=== PATIENT | female | born 1970 | race Caucasian/White ===

== ENCOUNTER 2017-12-09 13:26 | Emergency (ER) | payer OTHER ==
[2017-12-09 13:38] VITALS: TEMP 98.4; BMI 30.7
--- NOTE | 2017-12-09 13:52 | PDOC ---
History of Present Illness - General Chief Complaint: Chest Pain Stated Complaint: CHEST PAIN Time Seen by Provider: 12/09/17 13:51 History Source: Patient - History of Present Illness Initial Comments: 12/09/17 14:08 The patient is a 47 year old female with a PMH of HTN who presents to our ED c/ o chest pain. Patient states the chest pain is substernal, "light pressure" with no radiation and was initially 5/10 when it started on . Patient measured her blood pressures at home and had two readings of SBP 180's/90's. Patient notes she stopped her BP medication in December 2016 because she felt much less stressed which is what she attributes to causing her high blood pressure 4 years previous. Patient was evaluated by her PMD, Dr. Rashad Galarza , on Friday who indicated patient should restart her medication (Amlodipine 10 mg QD and Metoprolol 100 mg QD). Patient states she ran 10 miles on Friday and since her chest pain has worsened since that time, now 7-8/ she decided to come to the ED. ROS is positive for facial tingling which patient notes is consistent with her prior onset of HTN. Also note 2 week h/o viral URI symptoms including runny nose, cough. Patient notes she was evaluated by cardiology 2 or 4 years ago and she had a stress test but can't recall the results. Patient denies shortness of breath, lightheadedness, palpitations, abdominal pain, nausea/vomiting. NKDA Surgical: Tubal Ligation Social: denies nicotine, 4-5 drinks 6 days weekly, denies recreational drugs PMD:Dr. Rashad Galarza Past History - Past Medical History Allergies/Adverse Reactions: Allergies Allergy/AdvReac Type Severity Reaction Status Date / Time No Known Allergies Allergy Unverified 12/09/17 14:54 Home Medications: Ambulatory Orders Amlodipine Besylate 5 mg PO DAILY 12/09/17 Metoprolol Succinate 50 mg PO DAILY 12/09/17 Anemia: Yes COPD: No Diabetes: Yes HTN: Yes - Immunization History Immunization Up to Date: Yes - Suicide/Smoking/Psychosocial Hx Smoking History: Never smoked Hx Alcohol Use: Yes (2-3 drinks, 5 nights a week) Drug/Substance Use Hx: No Review of Systems - Review of Systems Constitutional: No: Chills, Fever HEENTM: No: Blurred Vision, Double Vision Respiratory: Yes: Cough. No: Shortness of Breath, Wheezing, Hemoptysis Cardiac (ROS): Yes: Chest Pain. No: Lightheadedness, Palpitations, Syncope ABD/GI: No: Constipated, Diarrhea, Nausea, Vomiting *Physical Exam - Vital Signs Last Vital Signs Temp Pulse Resp BP Pulse Ox 98.4 F 87 18 170/95 98 12/09/17 13:36 12/09/17 13:36 12/09/17 13:36 12/09/17 13:36 12/09/17 13:36 - Physical Exam General Appearance: Yes: Nourished, Appropriately Dressed HEENT: positive: Normal Voice, Hearing Grossly Normal Neck: positive: Trachea midline, Supple. negative: Lymphadenopathy (R), Lymphadenopathy (L) Respiratory/Chest: positive: Lungs Clear, Normal Breath Sounds. negative: Labored Respiration, Rapid RR, Crackles, Wheezing Cardiovascular: positive: S1, S2, Systolic Murmur. negative: Edema, JVD Vascular Pulses: Dorsalis-Pedis (R): 2+, Doralis-Pedis (L): 2+ Gastrointestinal/Abdominal: positive: Normal Bowel Sounds, Soft. negative: Distended, Guarding, Rebound, Tenderness Extremity: positive: Normal Capillary Refill, Normal Inspection Integumentary: positive: Normal Color, Dry, Warm Neurologic: positive: Fully Oriented, Alert ED Treatment Course - LABORATORY CBC & Chemistry Diagram: 12/09/17 14:12 12/09/17 14:45 Medical Decision Making - Medical Decision Making 12/09/17 14:35 47 year old female, non-adherent to BP meds, w/chest pain. SBP initially 170's at triage, 150's on PE. Frontal diagnosis: r/o ACS, pericarditis, pleuristy, PNA less likely PE, CVA. Will obtain ECG, Troponin, CMP and CXR. Patient declining pain medication @ this time. Reassess. 12/09/17 15:19 Patient resting comfortably. BP stable 12/09/17 16:04 Troponin (-) CBC unremarkable Serum pending 12/09/17 16:22 CXR shows no infiltrate, consolidation 12/09/17 16:24 Patient observed for 2+ hours with stable chest pain. As patient has scheduled Carotid duplex tomorrow and can schedule appointment with PMD, will discharge home with strict return precautions and importance of follow up with cardiology prior to completing in previously scheduled 03/04 marathon. I discussed the physical exam findings, ancillary test results and final diagnoses with the patient. I answered all of the patient's questions. The patient was satisfied with the care received and felt comfortable with the discharge plan and treatment plan. The patient will return to the Emergency Department with any new, persistent or worsening symptoms. *DC/Admit/Observation/Transfer Diagnosis at time of Disposition: Chest pain - Discharge Dispostion Disposition: HOME Condition at time of disposition: Good Decision to Admit order: No - Referrals Referrals: Osacr Galarza MD [Primary Care Provider] - - Patient Instructions Printed Discharge Instructions: DI for Atypical Chest Pain Additional Instructions: Please keep your previously scheduled appointment for a carotid doppler tomorrow. In addition, please make an appointment to see Dr. Galarza for further evaluation including a referral to a apparel rental clerk. Please obtain clearance from a apparel rental clerk and Dr. Galarza prior to participating in your marathon race. You can take Motrin for your pain (up to 3200 mg daily). Return to the Emergency Department for any new/worsening/concerning symptoms. - Post Discharge Activity
[2017-12-09 15:01] LABS: BASO % 0.5 % (0-2.0); EOS % 0.5 % (0-4.5); HEMATOCRIT 41.6 % (32.4-45.2); HEMOGLOBIN 13.4 GM/dL (10.7-15.3); LYMPH % 19.8 % (8-40); MCH 26.4 pg (25.7-33.7); MCHC 32.3 g/dl (32.0-36.0); MEAN CELL VOLUME 81.7 fl (80-96); MONO % 8.5 % (3.8-10.2); NEUT % 70.7 % (42.8-82.8); PLATELET COUNT 311 K/MM3 (134-434); RBC 5.09 M/mm3 (3.60-5.2); WHITE BLOOD COUNT 9.8 K/mm3 (4.0-10.0)
[2017-12-09 15:21] LABS: ALBUMIN 3.5 g/dl (3.4-5.0); ALK PHOS 96 U/L (45-117); ANION GAP 6 MMOL/L (8-16); BILIRUBIN,TOTAL 0.2 mg/dL (0.2-1); BLOOD UREA NITROGEN 17 mg/dL (7-18); CALCIUM 9.6 mg/dL (8.5-10.1); CHLORIDE 107 mmol/L (98-107); CO2 26 mmol/L (21-32); CREATININE 0.7 mg/dL (0.55-1.3); GLUCOSE,RANDOM 72 mg/dL (74-106); POTASSIUM 3.8 mmol/L (3.5-5.1); SGOT/AST 12 U/L (15-37); SGPT/ALT 21 U/L (13-61); SODIUM 138 mmol/L (136-145); TOT PROT 7.6 g/dl (6.4-8.2)
--- NOTE | 2017-12-09 15:41 | PDOC ---
Attending Attestation - Resident Resident Name: LindsayHodan - ED Attending Attestation I have performed the following: I have examined & evaluated the patient, The case was reviewed & discussed with the resident, I agree w/resident's findings & plan - HPI HPI: 12/09/17 15:29 47-year-old female with history of hypertension presents with 5 days of mild chest discomfort in the setting of newly elevated blood pressures. The patient developed gradual onset of bilateral chest discomfort 5 days ago, checked her blood pressure and noted to be elevated, saw her PCP Dr. Galarza on Friday and was restarted on blood pressure medications. Patient's discomfort has persisted since then, her blood pressure did improve so she went for a 10 mile run 2 days ago without difficulty, and notably without any chest pain or difficulty breathing. The patient was lying on the couch earlier today and noted a slight increase in her chest discomfort, so she presents for evaluation. No PE risk factors, admits to 3-4 weeks of URI symptoms of chest congestion and dry cough, no fevers or chills. Has history of GERD but this is different, no leg swelling or positional changes. Denies any dyspnea associated with her symptoms. - Physicial Exam PE: 12/09/17 15:31 Vitals as noted, blood pressure 140/85 on my evaluation Well-appearing seated in stretcher, speaking full sentences without any acute distress No JVD, heart is regular without murmur or rub, lungs are clear Abdomen benign No edema or calf tenderness - Medical Decision Making 12/09/17 15:32 47-year-old female with atypical chest pain for 5 days in the setting of modest elevations in blood pressure. Chest pain is atypical for ACS or PE or acute infectious process, suspect more inflammatory process (question pleuritis versus costochondritis versus pericarditis) given the recent URI sxs. check labs, single troponin sufficient given 5d ongoing sxs and low clinical suspicion EKG without acute ischemia cxr trial of nsaid dispo accordingly with f/u Dr. Galarza and cardiology Heart Score/ECG Review - History History: Slightly suspicious - Electrocardiogram EKG: Normal - Age Age: 45-65 - Risk Factors Based on the list above the patient has:: 1-2 risk factors - Troponin Troponin: </= normal limit - Score Heart Score - Total: 2 #1 ECG reviewed & interpreted by me at: 13:26 General ECG Interpretation: Sinus Rhythm, Normal Rate (82), Normal Intervals ( qtc 448), No acute ischemic changes (no RI depression or ST elevation)
[2017-12-09] MEDS ORDERED: IBUPROFEN 400 MG TABLET (FP) PO ONE ×2 (16:35→16:47)
[2017-12-09 17:07] VITALS: BP 136/78; PULSE 68
--- NOTE | 2017-12-10 09:54 | EKG ---
Test Reason : Blood Pressure : / mmHG Vent. Rate : 082 BPM Atrial Rate : 082 BPM P-R Int : 160 ms QRS Dur : 094 ms QT Int : 384 ms P-R-T Axes : 043 013 031 degrees QTc Int : 448 ms NORMAL SINUS RHYTHM NORMAL ECG WHEN COMPARED WITH ECG OF 30-APR-2007 14:14, VENT. RATE HAS INCREASED BY 28 BPM Confirmed by VARGAS TELLEZ MD ([id number]) on 12/10/2017 9:54:38 AM Referred By: Confirmed By:VARGAS TELLEZ MD
== END 2017-12-09 16:55 | disposition home or self-care (01) ==
LOC: JER 13:26
DX: R07.89 Other chest pain (principal); I10 Essential (primary) hypertension
CPT/HCPCS: 36415; 71045-TC-FY; 80053; 82550; 84484; 84703; 85025; 93005; 93010; 99283-25

== ENCOUNTER 2018-11-22 21:16 | Inpatient (IN) | payer OTHER ==
--- NOTE | 2018-11-22 21:51 | PDOC ---
History of Present Illness - General Chief Complaint: Chest Pain Stated Complaint: CHEST PAIN Time Seen by Provider: 11/22/18 21:50 History Source: Patient Exam Limitations: No Limitations - History of Present Illness Initial Comments: 11/22/18 22:17 Janna Ceron is a 48yF w PMHx uncontrolled HTN presenting w chest tightness. She has had 2-4 episodes of midsternal chest tightness lasting 5-15 minutes exacerbated by exertion over the last 7 days. Associated nausea, face paresthesias, vision change (seeing black halos). Not compliant on BP meds - recently acquired prescriptions, alternates between 2 meds, stops when asymptomatic. Measured BP several times measuring 180/100 on average. Took baby aspirin today. Denies fever, headache, vomiting, cough, SOB, AB pain, urinary/ bowel mvmt changes. Past History - Past Medical History Allergies/Adverse Reactions: Allergies Allergy/AdvReac Type Severity Reaction Status Date / Time No Known Allergies Allergy Verified 11/22/18 21:31 Home Medications: Ambulatory Orders Amlodipine Besylate 5 mg PO DAILY 12/09/17 Metoprolol Succinate 50 mg PO DAILY 12/09/17 Anemia: Yes COPD: No Diabetes: Yes HTN: Yes - Family Disease History Family Disease History: Heart Disease: Mother ( heart attack 40s) - Immunization History Immunization Up to Date: Yes - Suicide/Smoking/Psychosocial Hx Smoking History: Never smoked Have you smoked in the past 12 months: No Hx Alcohol Use: Yes (2-3 drinks, 5 nights a week) Drug/Substance Use Hx: No Substance Use Type: Alcohol Review of Systems - Review of Systems Constitutional: No: Chills, Fever HEENTM: Yes: Recent change in vision. No: Eye Pain, Nose Pain, Throat Pain, Mouth Pain Respiratory: No: Cough, Shortness of Breath Cardiac (ROS): Yes: Chest Tightness. No: Palpitations, Syncope ABD/GI: Yes: Nausea. No: Abdominal Distended, Constipated, Diarrhea, Vomiting : No: Burning, Dysuria, Discharge, Flank Pain, Hematuria, Incontinence Musculoskeletal: No: Back Pain, Joint Pain, Muscle Pain, Muscle Weakness Integumentary: No: Bruising, Flushing, Lesions Neurological: No: Headache, Numbness, Seizure, Tingling, Tremors Psychiatric: No: Anxiety, Depression, Stressors Endocrine: No: Excessive Sweating, Flushing, Intolerance to Cold, Intolerance to Heat Hematologic/Lymphatic: No: Anemia, Blood Clots, Easy Bleeding *Physical Exam - Vital Signs Last Vital Signs Temp Pulse Resp BP Pulse Ox 98.4 F 73 17 150/74 98 11/22/18 21:33 11/22/18 22:32 11/22/18 22:32 11/22/18 22:32 11/22/18 22:32 - Physical Exam General Appearance: Yes: Nourished, Appropriately Dressed. No: Apparent Distress HEENT: positive: EOMI, [place], Normal Voice, Hearing Grossly Normal. negative: Scleral Icterus (R), Scleral Icterus (L), Nasal Congestion, Rhinorrhea Respiratory/Chest: positive: Lungs Clear, Normal Breath Sounds. negative: Chest Tender, Respiratory Distress, Crackles, Rales, Rhonchi, Stridor, Wheezing Cardiovascular: positive: Regular Rhythm, Regular Rate, S1, S2. negative: Edema , Murmur Extremity: positive: Normal Capillary Refill Integumentary: positive: Normal Color Neurologic: positive: technical writing lead/mgr II-XII NML intact, Fully Oriented, Alert, Normal Response, Responsive. negative: Sensory Deficit, Confused, Disoriented Heart Score/ECG Review - History History: Highly suspicious - Electrocardiogram EKG: Normal - Age Age: 45-65 - Risk Factors Risk Factors Heart Score: No Hx Hypercholesterolemia, Yes Hx Hypertension, No Hx Diabetes, No Smoking History, Yes Positive family hx of cardiac disease, Yes Hx Obesity Based on the list above the patient has:: >/=3 risk factors or Hx atherosclerotic disease - Troponin Troponin: </= normal limit - Score Heart Score - Total: 5 ED Treatment Course - LABORATORY CBC & Chemistry Diagram: 11/22/18 22:15 11/22/18 22:30 - ADDITIONAL ORDERS Additional order review: Laboratory Results 11/22/18 22:30 Sodium 139 Potassium 3.9 Chloride 105 Carbon Dioxide 24 Anion Gap 10 BUN 13.4 Creatinine 0.8 Est GFR (CKD-EPI)AfAm 101.75 Est GFR (CKD-EPI)NonAf 87.79 Random Glucose 106 Calcium 8.8 Total Bilirubin 0.2 AST 15 ALT 22 Alkaline Phosphatase 110 Troponin I < 0.02 Total Protein 7.5 Albumin 3.7 11/22/18 22:15 RBC 5.20 MCV 79.0 L MCHC 32.4 RDW 15.9 H MPV 7.6 Neutrophils % 79.4 Lymphocytes % 13.1 D Monocytes % 5.8 Eosinophils % 0.8 Basophils % 0.9 - RADIOLOGY Radiology Studies Ordered: Category Date Time Status CHEST X-RAY PORTABLE* [RAD] Stat Radiology 11/22/18 22:17 Taken Medical Decision Making - Medical Decision Making 11/22/18 22:24 CBC CMP trop EKG CXR EKG NSR HR 77, QTc 454, no ST changes WBC 13, neg trop CXR clear lung noe Janna Ceron is a 48yF w PMHx uncontrolled HTN presenting w chest tightness concerning for unstable angina w chest pain worse w exertion, multiple cardiac risk factors. EKG with NSR no ST changes, negative troponin. Had 2 episodes of chest discomfort at rest in the ED. Plan to admit for chest pain in setting of HEART score 5 (3 risk factors, highly concerning symptoms) Previous PCP Rashad Galarza refused to admit her because she switched insurance to Medicaid. Admit to tele for unstable angina. Sent out microblog Signed out to night team *DC/Admit/Observation/Transfer Diagnosis at time of Disposition: Unstable angina - Discharge Dispostion Condition at time of disposition: Stable Decision to Admit order Date/Time: Decision to Admit Order Category Date Time Status Decision to Admit to Hospital Routine Admission 11/22/18 23:21 Active - Referrals Referrals: Shamir Galarza MD [Staff Physician] - - Patient Instructions - Post Discharge Activity
[2018-11-22 22:33] LABS: BASO % 0.9 % (0-2.0); EOS % 0.8 % (0-4.5); HEMATOCRIT 41.1 % (32.4-45.2); HEMOGLOBIN 13.3 GM/dL (10.7-15.3); LYMPH % 13.1 % (8-40); MCH 25.6 pg (25.7-33.7); MCHC 32.4 g/dl (32.0-36.0); MEAN PLT VOLUME 7.6 fl (7.5-11.1); MONO % 5.8 % (3.8-10.2); NEUT % 79.4 % (42.8-82.8); PLATELET COUNT 322 K/MM3 (134-434); RDW 15.9 % (11.6-15.6); WHITE BLOOD COUNT 13.9 K/mm3 (4.0-10.0)
[2018-11-22 23:25] LABS: ALBUMIN 3.7 g/dl (3.4-5.0); ALK PHOS 110 U/L (45-117); ANION GAP 10 MMOL/L (8-16); BILIRUBIN,TOTAL 0.2 mg/dL (0.2-1); BLOOD UREA NITROGEN 13.4 mg/dL (7-18); CALCIUM 8.8 mg/dL (8.5-10.1); CHLORIDE 105 mmol/L (98-107); CO2 24 mmol/L (21-32); CREATININE 0.8 mg/dL (0.55-1.3); GLUCOSE,RANDOM 106 mg/dL (74-106); POTASSIUM 3.9 mmol/L (3.5-5.1); SGOT/AST 15 U/L (15-37); SGPT/ALT 22 U/L (13-61); SODIUM 139 mmol/L (136-145); TOT PROT 7.5 g/dl (6.4-8.2)
--- NOTE | 2018-11-22 23:58 | PDOC ---
*Physical Exam - Vital Signs Last Vital Signs Temp Pulse Resp BP Pulse Ox 98.4 F 73 17 150/74 98 11/22/18 21:33 11/22/18 22:32 11/22/18 22:32 11/22/18 22:32 11/22/18 22:32 ED Treatment Course - LABORATORY CBC & Chemistry Diagram: 11/22/18 22:15 11/22/18 22:30 - ADDITIONAL ORDERS Additional order review: Laboratory Results 11/22/18 22:30 Sodium 139 Potassium 3.9 Chloride 105 Carbon Dioxide 24 Anion Gap 10 BUN 13.4 Creatinine 0.8 Est GFR (CKD-EPI)AfAm 101.75 Est GFR (CKD-EPI)NonAf 87.79 Random Glucose 106 Calcium 8.8 Total Bilirubin 0.2 AST 15 ALT 22 Alkaline Phosphatase 110 Troponin I < 0.02 Total Protein 7.5 Albumin 3.7 11/22/18 22:15 RBC 5.20 MCV 79.0 L MCHC 32.4 RDW 15.9 H MPV 7.6 Neutrophils % 79.4 Lymphocytes % 13.1 D Monocytes % 5.8 Eosinophils % 0.8 Basophils % 0.9 Medical Decision Making - Medical Decision Making 11/22/18 23:58 Received sign out from DR. Enriquez admitted to hospitalist. *DC/Admit/Observation/Transfer Diagnosis at time of Disposition: Unstable angina - Discharge Dispostion Condition at time of disposition: Stable - Referrals Referrals: Shamir Galarza MD [Staff Physician] - - Patient Instructions - Post Discharge Activity
--- NOTE | 2018-11-23 00:25 | PDOC ---
Documentation entered by Courtney Merritt SCRIBE, acting as scribe for Clarence Chen MD. Clarence Chen MD: This documentation has been prepared by the [address] Nirvannie, SCRIBE, under my direction and personally reviewed by me in its entirety. I confirm that the documentation accurately reflects all work, treatment, procedures, and medical decision making performed by me. Attending Attestation - Resident Resident Name: Kurtis Enriquez - ED Attending Attestation I have performed the following: I have examined & evaluated the patient, The case was reviewed & discussed with the resident, I agree w/resident's findings & plan - HPI HPI: 11/22/18 23:36 CC: Chest pain. HPI: The patient is a 48 year old female, with a significant past medical history of HTN, who presents to the emergency department with, intermittent, exertional, midsternal chest tightness with associated nausea. Patient is noncompliant with blood pressure medications. She denies recent fevers, chills, or headache. Allergies: NKDA - Physicial Exam PE: 11/23/18 00:19 Exam: Vitals: Triage Vital signs reviewed General Appearance: no acute distress, well nourished well developed, Head: Atraumatic, normocephalic Neck: Supple;No Nuchal rigidity Chest Wall: Nontender Cardiac: Regular rate and rhythm, no murmurs, no rubs, no gallops, Lungs: Clear to auscultation bilateral, good air movement bilaterally, Abdomen: Soft, nondistended, normal bowel sounds, nontender to palpation Rectal: Exam deferred Extremities: Full range of motion to all extremities, no cyanosis, clubbing, or edema Skin: Warm and dry, no rashes or lesions, no petechiae Neuro: AOX3; Cranial Nerves 2-12 grossly intact, Strength intact to all extremities, Sensation intact to all extremities Psych: normal mood, normal affect - Medical Decision Making 48 years old with nonischemic EKG negative troponin but worrisome chest pain history with exertional discomfort Heart score is 4 We'll admit to hospital for cardiology evaluation and further management. Heart Score/ECG Review - History History: Highly suspicious (Nonischemic EKG troponin negative but worrisome exertional chest pain story We'll admit the hospital for further evaluation and cardiology consultation) - Electrocardiogram EKG: Normal - Age Age: 45-65 - Risk Factors Risk Factors Heart Score: Yes Hx Hypertension, Yes Positive family hx of cardiac disease Based on the list above the patient has:: 1-2 risk factors - Troponin Troponin: </= normal limit - Score Heart Score - Total: 4 - ECG Impressions Comment:: 11/22/18 23:22 48 years old with past medical history significant for hypertension, positive family history of coronary artery disease presents to the ED with one-week history of intermittent exertional chest pain associated with diaphoresis and arm tingling and nause .ROS: A complete review of 10 out of 10 review of systems is taken and is negative apart from what is previously mentioned below and in the HPI.
[2018-11-23] MEDS ORDERED: NITROGLYCERIN SUBLINGUAL 1/150 0.4 MG TAB SL PRN (00:47)
[2018-11-23] MEDS ORDERED: ATORVASTATIN CA 40 MG TABLET (FP) PO ONE (01:04)
--- NOTE | 2018-11-23 01:06 | PN ---
Teaching Attending Note Name of Resident: Tiago Mock ATTENDING PHYSICIAN STATEMENT I saw and evaluated the patient. I reviewed the resident's note and discussed the case with the resident. I agree with the resident's findings and plan as documented. SUBJECTIVE: 48yo woman w/ uncontrolled HTN, +family hx for cad, presenting w chest tightness. She has had intermitted midsternal chest tightness lasting several minutes exacerbated by exertion over the last few weeks. Now w/ 06/10 chest pain , with radiation to left neck. Say her mother of [place] at age 41. Her maternal grandmother of [place] at age 60. OBJECTIVE: Last Vital Signs Temp Pulse Resp BP Pulse Ox 98.4 F 73 17 150/74 98 11/22/18 21:33 11/22/18 22:32 11/22/18 22:32 11/22/18 22:32 11/22/18 22:32 gen -nad, aaox3 heent -at, nc neck supple cor-s1+s2+rrr chest clear ext -no pedal edema Abnormal Lab Results 11/22/18 22:15 WBC 13.9 H MCV 79.0 L MCH 25.6 L RDW 15.9 H Absolute Neuts (auto) 11.0 H ekg -showed nsr ASSESSMENT AND PLAN: #Unstable angina, neg troponin, ekg normal with no ischmic changes however presentation suspiscious for acs. Strong family history of ACS. -admit to telemetry -asa 324mg po -CLopidogrel 300mg po -high dose statin -heparin drip -echo -NGL SL prn -morphine iv -BP control -supplemental oxygen -salt restriction -cardiology evaluation -urine drug screen
[2018-11-23] MEDS ORDERED: HEPARIN INFUSION - 25,000 UNITS/500 ML INFUS.BAG IV SCH (01:15)
[2018-11-23] MEDS ORDERED: HEPARIN NA (PORCINE) 5,000 UNITS/ML 1ML VIAL IVPUSH PRN ×2 (01:16)
[2018-11-23] MEDS ORDERED: ATORVASTATIN CA 40 MG TABLET (FP) ONE ×2 (01:27→22:24)
--- NOTE | 2018-11-23 02:08 | HP ---
CHIEF COMPLAINT: Episodic angina for the past 7 days PCP: Rashad Galarza HISTORY OF PRESENT ILLNESS: This is a 48 year old female with PMH significant for HTN. She presented to the ER with complaints of episodic chest pain for the past 7 days, which began Friday (11/16) evening. On afternoon, she was walking uphill to pick her son up from school, when she began to feel diaphoretic and short of breath. Normally, she is comfortably able to complete the same route uphill. She stopped walking and her son walked down to her instead. After a brief moment of rest, the pain subsided and she returned home. A few hours later when she was cooking dinner, she felt a substernal, dull chest pain associated with nausea, prompting her to lie down. The pain was sudden in onset, lasted around 15 minutes, rated 5/10 in intensity, and non-radiating. She checked her blood pressure and found it to be 178/106. She took her medication (Norvasc 5mg and Metoprolol 50mg), and then re-checked her blood pressure after a while, and found that it had come down to the 150s/80s. The next day, she had another similar episode but this time she also felt tingling in her fingertips B/L as well as her face (which she has felt in the past during episodes of elevated BP), along with a throbbing sensation on the left side of her neck (not pain). Over the next few days, she reports having approximately 4 episodes of similar chest pain per day, each around 5-15 minutes , brought on by exertion and relieved by rest, aggravated by lying on her left side, 4-5/10 in intensity, and associated with chills, light headedness, dizziness (with her head spinning, not the environment around her), SOB, palpitations, and nausea. The pain is neither reproducible nor pleuritic. She denies any recent illnesses, exposure to sick contacts, or change in her medications. Prior to presenting to the ER, she mistakenly took 3 tablets of Norvasc instead of 1. She has had similar pain in the past, and states that her last stress test was done some time between [id number], and was normal. She presented to the [facility] ER in December 2018 with similar complaints of substernal chest pain that worsened after running 10 miles. Her EKG and trops were normal at the time and she was not admitted. Of note, she was diagnosed with HTN in November 2017, and had been compliant with her medication til Apr 2018. Between Apr and August 2018, she stopped taking her medication completely s that she would not be dependant on anti- hypertensives. This was done without the approval of a physician. Between August and November, she has been taking her medications intermittently, skipping days when her BP is within normal range, and taking them when her BP is high. ER course was notable for: (1) EKG: NSR, no ST T wave changes (2) Trop 0.02 x1 (3) WBC 13.9 Recent Travel: None PAST MEDICAL HISTORY: HTN, not entirely compliant with medications PAST SURGICAL HISTORY: Tubal ligation in 2007 Social History: Smoking: denies Alcohol: Drinks IPAs a few times a week Drugs: denies Allergies No Known Allergies Allergy (Verified 11/22/18 21:31) HOME MEDICATIONS: Home Medications Medication Instructions Recorded Amlodipine Besylate 5 mg PO DAILY 12/09/17 Metoprolol Succinate 50 mg PO DAILY 12/09/17 REVIEW OF SYSTEMS CONSTITUTIONAL: diaphoresis, Absent: fever, chills, diaphoresis, generalized weakness, malaise, loss of appetite, weight change HEENT: Absent: rhinorrhea, nasal congestion, throat pain, throat swelling, difficulty swallowing, mouth swelling, ear pain, eye pain, visual changes CARDIOVASCULAR: chest pain lightheadedness, palpitations Absent: chest pain, syncope, palpitations, irregular heart rate, lightheadedness , peripheral edema RESPIRATORY: shortness of breath Absent: cough, shortness of breath, dyspnea with exertion, orthopnea, wheezing, stridor, hemoptysis GASTROINTESTINAL: nausea, Absent: abdominal pain, abdominal distension, nausea, vomiting, diarrhea, constipation, melena, hematochezia GENITOURINARY: Absent: dysuria, frequency, urgency, hesitancy, hematuria, flank pain, genital pain MUSCULOSKELETAL: Absent: myalgia, arthralgia, joint swelling, back pain, neck pain SKIN: Absent: rash, itching, pallor HEMATOLOGIC/IMMUNOLOGIC: Absent: easy bleeding, easy bruising, lymphadenopathy, frequent infections ENDOCRINE: Absent: unexplained weight gain, unexplained weight loss, heat intolerance, cold intolerance NEUROLOGIC: Absent: headache, focal weakness or paresthesias, dizziness, unsteady gait, seizure, mental status changes, bladder or bowel incontinence PSYCHIATRIC: Absent: anxiety, depression, suicidal or homicidal ideation, hallucinations. PHYSICAL EXAMINATION Vital Signs - 24 hr 11/22/18 11/22/18 21:33 22:32 Temperature 98.4 F Pulse Rate 78 Pulse Rate [ 73 Left] Respiratory 18 17 Rate Blood Pressure 170/90 Blood Pressure 150/74 [Left Arm] O2 Sat by Pulse 100 98 Oximetry (%) GENERAL: AOx3 HEAD: Normal with no signs of trauma. EYES: Pupils equal, round and reactive to light, extraocular movements intact, sclera anicteric, conjunctiva clear. No lid lag. EARS, NOSE, THROAT: Ears normal, nares patent, oropharynx clear without exudates. Moist mucous membranes. NECK: Normal range of motion, supple without lymphadenopathy, JVD, or masses. LUNGS: Breath sounds equal, clear to auscultation bilaterally. No wheezes, and no crackles. No accessory muscle use. HEART: Regular rate and rhythm, normal S1 and S2 without murmur, rub or gallop, no reproducible pain on palpation ABDOMEN: Soft, nontender, not distended, normoactive bowel sounds, no guarding, no rebound, no masses. No hepatomegaly or splenomegaly. MUSCULOSKELETAL: Normal range of motion at all joints. No bony deformities or tenderness. No CVA tenderness. UPPER EXTREMITIES: 2+ pulses, warm, well-perfused. No cyanosis. No clubbing. No peripheral edema. LOWER EXTREMITIES: 2+ pulses, warm, well-perfused. No calf tenderness. No peripheral edema. NEUROLOGICAL: Cranial nerves II-XII intact. Normal speech. Normal gait. PSYCHIATRIC: Cooperative. Good eye contact. Appropriate mood and affect. SKIN: Warm, dry, normal turgor, no rashes or lesions noted, normal capillary refill. Laboratory Results - last 24 hr 11/22/18 11/22/18 22:15 22:30 WBC 13.9 H RBC 5.20 Hgb 13.3 Hct 41.1 MCV 79.0 L MCH 25.6 L MCHC 32.4 RDW 15.9 H Plt Count 322 MPV 7.6 Absolute Neuts (auto) 11.0 H Neutrophils % 79.4 Lymphocytes % 13.1 D Monocytes % 5.8 Eosinophils % 0.8 Basophils % 0.9 Nucleated RBC % 0 Sodium 139 Potassium 3.9 Chloride 105 Carbon Dioxide 24 Anion Gap 10 BUN 13.4 Creatinine 0.8 Est GFR (CKD-EPI)AfAm 101.75 Est GFR (CKD-EPI)NonAf 87.79 Random Glucose 106 Calcium 8.8 Total Bilirubin 0.2 AST 15 ALT 22 Alkaline Phosphatase 110 Troponin I < 0.02 Total Protein 7.5 Albumin 3.7 ASSESSMENT/PLAN: This is a 48 year old female with PMH significant for HTN. She presented to the ER with complaints of episodic chest pain for the past 7 days, which began Friday (11/16) evening. #Unstable Angina - EKG and Trops negative, but presentation suspicious for ACS - EKG: NSR, no ST T wave changes - Trop 0.02 x1, will continue to trend - Tele monitoring - Echo ordered - ASA and Plavix 300mg administered once, started on 75mg daily - Heparin started: 5000 push + 17599 unit drip - 0.4 mg Nitrostat - Lipitor 40mg - Cardio (Dr. Conte) consulted - Morphine #Hx of HTN - Patient mistakenly took 3x Norvasc 10mg, will monitor BP and hold off on resuming meds - 150/74 -> 136/68 - Spoke to patient about importance of compliance, she expressed a willingness to comply with prescribed regimen #FEN - Mg, Phos ordered - Chol/Fet/ Na restricted diet #DVT PE - Already on heparin #Code status - Full code Visit type - Emergency Visit Emergency Visit: Yes ED Registration Date: 11/22/18 Care time: The patient presented to the Emergency Department on the above date and was hospitalized for further evaluation of their emergent condition. - New Patient This patient is new to me today: Yes Date on this admission: 11/23/18 - Critical Care Critical Care patient: No ATTENDING PHYSICIAN STATEMENT I saw and evaluated the patient. I reviewed the resident's note and discussed the case with the resident. I agree with the resident's findings and plan as documented. SUBJECTIVE: OBJECTIVE: ASSESSMENT AND PLAN:
[2018-11-23] MEDS ORDERED: ASPIRIN 81 MG CHEWABLE TABLETS PO ONE ×2 (03:53)
[2018-11-23] MEDS ORDERED: CLOPIDOGREL BISULFATE 300 MG TABLET PO ONE (03:55)
[2018-11-23 04:37] LABS: INR 1.16 (0.83-1.09); PROTHROMBIN TIME (PATIENT) 13.7 SEC (9.7-13.0)
[2018-11-23] MEDS ORDERED: HEPARIN INFUSION - 25,000 UNITS/500 ML INFUS.BAG IVPB ONE (05:11)
[2018-11-23] MEDS ORDERED: CLOPIDOGREL BISULFATE 300 MG TABLET ONE (05:11)
[2018-11-23] MEDS ORDERED: ASPIRIN 81 MG CHEWABLE TABLETS ONE (05:11)
[2018-11-23 07:08] LABS: BASO % 0.4 % (0-2.0); EOS % 1.1 % (0-4.5); HEMATOCRIT 37.3 % (32.4-45.2); HEMOGLOBIN 12.3 GM/dL (10.7-15.3); LYMPH % 19.1 % (8-40); MCH 26.1 pg (25.7-33.7); MCHC 32.9 g/dl (32.0-36.0); MEAN CELL VOLUME 79.1 fl (80-96); MEAN PLT VOLUME 7.5 fl (7.5-11.1); NEUT % 71.4 % (42.8-82.8); PLATELET COUNT 293 K/MM3 (134-434); RBC 4.71 M/mm3 (3.60-5.2); RDW 16.1 % (11.6-15.6); WHITE BLOOD COUNT 9.5 K/mm3 (4.0-10.0)
[2018-11-23] MEDS ORDERED: MORPHINE SULFATE 2 MG/ML VIAL IVPUSH PRN (07:43)
[2018-11-23 07:44] LABS: ALBUMIN 3.4 g/dl (3.4-5.0); BILIRUBIN,TOTAL 0.3 mg/dL (0.2-1); BLOOD UREA NITROGEN 13.2 mg/dL (7-18); CALCIUM 8.6 mg/dL (8.5-10.1); CREATININE 0.7 mg/dL (0.55-1.3); MAGNESIUM 2.1 mg/dL (1.8-2.4); POTASSIUM 3.7 mmol/L (3.5-5.1); TOT PROT 6.6 g/dl (6.4-8.2)
--- NOTE | 2018-11-23 09:01 | CON.CARD ---
Consult Consult Specialty:: Cardiology Referred by:: Hospitalist Medicine Reason for Consultation:: Chest pain - History of Present Illness Chief Complaint: Chest pain History of Present Illness: 48yo woman w/ uncontrolled HTN referable to medication noncompliance, +family hx for cad (mother with IN @ 41), presenting with chest tightness She has had intermittent midsternal chest tightness lasting several minutes exacerbated by exertion over the last few weeks. She had self-d/evonne meds since June, reports associated light-headedness, palpitations, diaphoresis denies dyspnea, orthopnea , true syncope, PND or LE edema. She took her meds after noticing elevated BP, currently asymptomatic, ruled out for IN. - History Source History Provided By: Patient Limitations to Obtaining History: No Limitations - Alcohol/Substance Use Hx Alcohol Use: Yes (2-3 drinks, 5 nights a week) - Smoking History Smoking history: Never smoked Have you smoked in the past 12 months: No Home Medications - Allergies Allergies/Adverse Reactions: Allergies Allergy/AdvReac Type Severity Reaction Status Date / Time No Known Allergies Allergy Verified 11/22/18 21:31 - Home Medications Home Medications: Ambulatory Orders Amlodipine Besylate 10 mg PO DAILY 12/09/17 Metoprolol Succinate 50 mg PO DAILY 12/09/17 Review of Systems - Review of Systems Constitutional: reports: Diaphoresis Cardiovascular: reports: Chest Pain, Palpitations Vital Signs: Vital Signs Temperature 98.4 F 11/23/18 08:27 Pulse Rate 75 11/23/18 08:27 Respiratory Rate 16 11/23/18 08:27 Blood Pressure 120/70 11/23/18 08:27 O2 Sat by Pulse Oximetry (%) 96 11/23/18 08:27 Constitutional: Yes: No Distress, Calm Neck: Yes: Supple Respiratory: Yes: Regular, CTA Bilaterally Gastrointestinal: Yes: Normal Bowel Sounds, Soft Cardiovascular: Yes: Regular Rate and Rhythm JVD: No Carotid Bruit: No Heart Sounds: Yes: S1, S2 Edema: No - Other Data Labs, Other Data: CBC, BMP 11/23/18 06:00 11/23/18 06:00 INR, PTT INR 1.16 (0.83-1.09) H 11/23/18 04:00 Troponin, BNP 11/22/18 11/23/18 22:30 04:00 Troponin I < 0.02 < 0.02 Troponin, BNP 11/22/18 11/23/18 22:30 04:00 Troponin I < 0.02 < 0.02 NSR @ [address]-T changes Imaging - Results Chest X-ray: Report Reviewed (NAD) Problem List - Problems (1) Hypertension Code(s): I10 - ESSENTIAL (PRIMARY) HYPERTENSION Qualifiers: Hypertension type: essential hypertension Qualified Code(s): I10 - Essential (primary) hypertension (2) Hyperlipidemia Code(s): E78.5 - HYPERLIPIDEMIA, UNSPECIFIED Qualifiers: Hyperlipidemia type: pure hypercholesterolemia Qualified Code(s): E78.00 - Pure hypercholesterolemia, unspecified; E78.0 - Pure hypercholesterolemia (3) Noncompliance with medication regimen Code(s): Z91.14 - PATIENT'S OTHER NONCOMPLIANCE WITH MEDICATION REGIMEN (4) Chest pain Code(s): R07.9 - CHEST PAIN, UNSPECIFIED Qualifiers: Chest pain type: precordial pain Qualified Code(s): R07.2 - Precordial pain Assessment/Plan 1. Stable angina r/o CAD 2. Hypertension 3. Hyperlipidemia 4. Medication noncompliance 5. Family h/o premature CAD 6. Abnormal TSH P:1. Ruled out for IN, july d/c Pavix and Heparin gtt, check full TFT 2. Continue ASA, Norvasc, Toprol XL, Lipitor 3. Once ruled out for IN, plan for stress echo to assess ischemia 4. Thank you for consultative opportunity
--- NOTE | 2018-11-23 09:28 | HP ---
Admitting History and Physical - Primary Care Physician PCP: henri henry - Admission Chief Complaint: pt admitted under hospitalist by mistake ? pt co nasea cp 3 days w lght headedness an nausea not relived by ppi stated her bp was elivatecand took 2 novascs pills ? 20 mg pt now comforable given her cp very disciptive and fm hx pos mom mi at 41 y/o despite stess test last nl pt admitted ? card f/u ? stress teast if no cp vs card cath. History Source: Patient Limitations to Obtaining History: No Limitations - Past Medical History Cardiovascular: Yes: HTN, Hyperlipdemia ...: No - Past Surgical History Past Surgical History: Yes: Tubal Ligation - Smoking History Smoking history: Never smoked Have you smoked in the past 12 months: No - Alcohol/Substance Use Hx Alcohol Use: Yes (2-3 drinks, 5 nights a week) History of Substance Use: reports: None - Social History Usual Living Arrangement: Yes: With Spouse History of Recent Travel: No Home Medications - Allergies Allergies/Adverse Reactions: Allergies Allergy/AdvReac Type Severity Reaction Status Date / Time No Known Allergies Allergy Verified 11/22/18 21:31 - Home Medications Home Medications: Ambulatory Orders Amlodipine Besylate 10 mg PO DAILY 12/09/17 Metoprolol Succinate 50 mg PO DAILY 12/09/17 Family Medical History Family Hx Cardiac Disorders: Mother Review of Systems - Review of Systems Constitutional: reports: Other (cp less today) Eyes: reports: No Symptoms HENT: reports: No Symptoms Neck: reports: No Symptoms Cardiovascular: reports: Chest Pain Respiratory: reports: No Symptoms Gastrointestinal: reports: Nausea Genitourinary: reports: No Symptoms Breasts: reports: No Symptoms Reported Musculoskeletal: reports: No Symptoms Integumentary: reports: No Symptoms Neurological: reports: No Symptoms Endocrine: reports: No Symptoms Hematology/Lymphatic: reports: No Symptoms Psychiatric: reports: No Symptoms Physical Examination Vital Signs: Vital Signs Temperature 98.4 F 11/23/18 08:27 Pulse Rate 75 11/23/18 08:27 Respiratory Rate 16 11/23/18 08:27 Blood Pressure 120/70 11/23/18 08:27 O2 Sat by Pulse Oximetry (%) 96 11/23/18 08:27 Constitutional: Yes: No Distress Eyes: Yes: WNL HENT: Yes: WNL Neck: Yes: WNL Cardiovascular: Yes: Regular Rate and Rhythm Respiratory: Yes: WNL Gastrointestinal: Yes: WNL ...Rectal Exam: Yes: Deferred Renal/: Yes: WNL Breast(s): Yes: WNL Musculoskeletal: Yes: WNL Extremities: Yes: WNL Edema: No Peripheral Pulses WNL: Yes Integumentary: Yes: WNL Neurological: Yes: WNL ...Motor Strength: WNL Psychiatric: Yes: Other (slght anxiety) Labs: CBC, BMP 11/23/18 06:00 11/23/18 06:00 Problem List - Problems (1) GERD (gastroesophageal reflux disease) Code(s): K21.9 - GASTRO-ESOPHAGEAL REFLUX DISEASE WITHOUT ESOPHAGITIS Assessment/Plan w/u up thyroid cont hep asa ntro sl plavix agree w caed w/u chk d/s labs in am and ekg lipitor 40 mg po q day srees rest vs card cath ? even if stress neg nuless constast mediated
[2018-11-23 09:58] LABS: COCAINE, UR NEGATIVE ng/ml (CUTOFF=300); METHADONE, UR NEGATIVE ng/ml (CUTOFF=300); OPIATES, URI NEGATIVE ng/ml (CUTOFF=300); PHENCYCLIDINE,URINE NEGATIVE ng/ml (CUTOFF=25); URINE AMPHETAMINES NEGATIVE ng/ml (CUTOFF=500); URINE BARBITURATES NEGATIVE ng/ml (CUTOFF=200); URINE BENZODIAZEPINES NEGATIVE ng/ml (CUTOFF=200)
[2018-11-23] MEDS ORDERED: ASPIRIN 81 MG CHEWABLE TABLETS PO SCH (10:00)
[2018-11-23] MEDS: PANTOPRAZOLE 40 MG TABLET (FP) PO SCH (10:20)
[2018-11-23] MEDS: ASPIRIN 325 MG ENTERIC COATED TABLET (FP) PO SCH (10:20)
--- NOTE | 2018-11-23 10:21 | EKG ---
Test Reason : Blood Pressure : / mmHG Vent. Rate : 081 BPM Atrial Rate : 081 BPM P-R Int : 168 ms QRS Dur : 094 ms QT Int : 386 ms P-R-T Axes : 029 019 026 degrees QTc Int : 448 ms NORMAL SINUS RHYTHM NORMAL ECG WHEN COMPARED WITH ECG OF 22-NOV-2018 21:23, NO SIGNIFICANT CHANGE WAS FOUND Confirmed by RAJAN YEN MD ([id number]) on 11/23/2018 10:20:40 AM Referred By: JEN SUNG Confirmed By:RAJAN YEN MD
--- NOTE | 2018-11-23 10:28 | EKG ---
Test Reason : Blood Pressure : / mmHG Vent. Rate : 077 BPM Atrial Rate : 077 BPM P-R Int : 164 ms QRS Dur : 090 ms QT Int : 402 ms P-R-T Axes : 031 016 030 degrees QTc Int : 454 ms POOR DATA QUALITY, INTERPRETATION MAY BE ADVERSELY AFFECTED NORMAL SINUS RHYTHM NORMAL ECG WHEN COMPARED WITH ECG OF 09-DEC-2017 13:26, NO SIGNIFICANT CHANGE WAS FOUND Confirmed by GLORIA MCKEON, HEAVENLY ([id number]) on 11/23/2018 10:28:20 AM Referred By: Confirmed By:HEAVENLY CASTRO MD
[2018-11-23] MEDS ORDERED: METHADONE HCL 10 MG TABLET PO ONE (13:20)
--- NOTE | 2018-11-23 18:04 | ECHO ---
Name: REECE ROJAS Exam:Exerise Stress Echocardiogram Study Date: 11/23/2018 12:00 PM Age: 48 yrs Reason For Study: CAD Height: 65 in Weight: 190 lb BSA: 1.9 m2 I WMSI = 1.00 % Normal = 100 III WMSI = 1.00 % Normal = 100 Segments Size X - Cannot 2 - 1-2 small Interpret 1 - Normal Hypokinetic 3 - Akinetic 4 - Dyskinetic3-5 moderate 5 - Aneurysmal 6-14 large 15-16 diffuse Procedure Details: Exercise Stress Echocardiogram with 2D imaging. Stress Comments Resting blood pressure was within normal limits. Normal resting electrocardiogram. Normal sinus rhythm. Normal ST segments. A treadmill exercise test according to Jaison protocol was performed. Maximum Heart Rate achieved was 85-90% of maximum age-predicted heart rate. There was no new ST segment depression. Total Stress Time was 9-10 minutes. Exercise-induced hypertension. Left Ventricle The left ventricle is normal in size. There is normal left ventricular wall thickness. The left ventricle is normal in structure and function. Exercise Echocardiogram Negative exercise stress echocardiogram, adequate by heart rate criteria, without symptoms, diagnosti c EKG changes or echocardiographic evidence of ischemia. Interpretation Summary Negative exercise stress echocardiogram, adequate by heart rate criteria, without symptoms, diagnosti c EKG changes or echocardiographic evidence of ischemia 1. Normal augmentation of all myocardial segments. There appears to be no clinical, electrocardiograp hic or echocardiographic evidence of exercise induced myocardia ischemia 2. Patient remained asymptomatic Reading Physician: Dg Greene MD 11/23/2018 06:03 PM
--- NOTE | 2018-11-23 18:22 | EKG ---
Test Reason : Blood Pressure : / mmHG Vent. Rate : 076 BPM Atrial Rate : 076 BPM P-R Int : 170 ms QRS Dur : 094 ms QT Int : 412 ms P-R-T Axes : 027 015 027 degrees QTc Int : 463 ms NORMAL SINUS RHYTHM NORMAL ECG WHEN COMPARED WITH ECG OF 23-NOV-2018 09:14, NO SIGNIFICANT CHANGE WAS FOUND Confirmed by RAJAN YEN MD ([id number]) on 11/23/2018 6:22:31 PM Referred By: Confirmed By:RAJAN YEN MD
[2018-11-23] MEDS ORDERED: ATORVASTATIN CA 40 MG TABLET (FP) PO SCH (22:00)
[2018-11-24 00:18] VITALS: BMI 32.6
[2018-11-24 07:00] LABS: BASO % 0.6 % (0-2.0); EOS % 1.3 % (0-4.5); HEMATOCRIT 35.8 % (32.4-45.2); HEMOGLOBIN 11.9 GM/dL (10.7-15.3); LYMPH % 19.2 % (8-40); MCH 26.1 pg (25.7-33.7); MCHC 33.2 g/dl (32.0-36.0); MEAN CELL VOLUME 78.6 fl (80-96); MEAN PLT VOLUME 7.2 fl (7.5-11.1); MONO % 8.1 % (3.8-10.2); NEUT % 70.8 % (42.8-82.8); PLATELET COUNT 242 K/MM3 (134-434); RBC 4.56 M/mm3 (3.60-5.2); WHITE BLOOD COUNT 8.5 K/mm3 (4.0-10.0)
[2018-11-24 07:23] LABS: CALCIUM 8.4 mg/dL (8.5-10.1); CREATININE 0.7 mg/dL (0.55-1.3); POTASSIUM 3.6 mmol/L (3.5-5.1)
[2018-11-24] MEDS ORDERED: CLOPIDOGREL BISULFATE 75 MG TABLET (FP) PO SCH (10:00)
[2018-11-24] MEDS ORDERED: ASPIRIN 81 MG CHEWABLE TABLETS PO SCH (10:00)
[2018-11-24] MEDS: ASPIRIN 325 MG ENTERIC COATED TABLET (FP) PO SCH (10:23)
[2018-11-24] MEDS: PANTOPRAZOLE 40 MG TABLET (FP) PO SCH (10:23)
--- NOTE | 2018-11-24 10:43 | PN ---
Progress Note, Physician Chief Complaint: Events noted Not in distress History of Present Illness: Patient was seen and examined. Awake and alert. Chart was reviewed Denies chest pain, SOB or palpitations - Current Medication List Current Medications: Active Medications Aspirin (Ecotrin -) 325 mg PO DAILY [facility] Last Admin: 11/24/18 10:23 Dose: 325 mg Atorvastatin Calcium (Lipitor -) 40 mg PO HS [facility] Last Admin: 11/23/18 23:53 Dose: Not Given Metoprolol Succinate (Toprol Xl -) 50 mg PO DAILY [facility] Last Admin: 11/24/18 10:23 Dose: 50 mg Morphine Sulfate (Morphine Sulfate) 2 mg IVPUSH Q6H PRN PRN Reason: PAIN LEVEL 6-10 Nitroglycerin (Nitrostat -) 0.4 mg SL Q5M PRN PRN Reason: FOR CHEST PAIN Pantoprazole Sodium (Protonix -) 40 mg PO DAILY [facility] Last Admin: 11/24/18 10:23 Dose: 40 mg - Objective Vital Signs: Vital Signs Temperature 97.0 F L 11/24/18 06:00 Pulse Rate 69 11/24/18 06:00 Respiratory Rate 16 11/24/18 06:00 Blood Pressure 152/94 11/24/18 06:00 O2 Sat by Pulse Oximetry (%) 96 11/23/18 23:00 Eyes: Yes: PERRL HENT: Yes: Atraumatic Neck: Yes: Supple Cardiovascular: Yes: Regular Rate and Rhythm, S1, S2 Respiratory: Yes: CTA Bilaterally Gastrointestinal: Yes: Normal Bowel Sounds, Soft. No: Tenderness Edema: No Labs: CBC, BMP 11/24/18 06:42 11/24/18 06:42 INR, PTT INR 1.16 (0.83-1.09) H 11/23/18 04:00 Problem List - Problems (1) Hyperlipidemia Code(s): E78.5 - HYPERLIPIDEMIA, UNSPECIFIED Qualifiers: Hyperlipidemia type: pure hypercholesterolemia Qualified Code(s): E78.00 - Pure hypercholesterolemia, unspecified; E78.0 - Pure hypercholesterolemia (2) Hypertension Code(s): I10 - ESSENTIAL (PRIMARY) HYPERTENSION Qualifiers: Hypertension type: essential hypertension Qualified Code(s): I10 - Essential (primary) hypertension (3) Noncompliance with medication regimen Code(s): Z91.14 - PATIENT'S OTHER NONCOMPLIANCE WITH MEDICATION REGIMEN (4) Chest pain Code(s): R07.9 - CHEST PAIN, UNSPECIFIED Qualifiers: Chest pain type: precordial pain Qualified Code(s): R07.2 - Precordial pain Assessment/Plan 1. Stable angina with negative stress echocardiography for ischemia 2. Hypertension 3. Hyperlipidemia 4. Medication noncompliance 5. Family history of premature CAD 6. Abnormal TSH PLAN: 1. Continue ASA, Norvasc, Toprol XL and Lipitor 2. Stress echocardiography was reviewed 3. Discharge planning and gave option to follow up in the office ( [facility]) [phone] Dg Greene MD
--- NOTE | 2018-11-24 10:48 | DS ---
Physical Examination Vital Signs: Vital Signs Temperature 97.0 F L 11/24/18 06:00 Pulse Rate 69 11/24/18 06:00 Respiratory Rate 16 11/24/18 06:00 Blood Pressure 152/94 11/24/18 06:00 O2 Sat by Pulse Oximetry (%) 96 11/23/18 23:00 Constitutional: Yes: Well Nourished Eyes: Yes: WNL HENT: Yes: WNL Neck: Yes: WNL Cardiovascular: Yes: WNL Respiratory: Yes: WNL Gastrointestinal: Yes: Tenderness, Epigastrium ...Rectal Exam: Yes: Deferred Renal/: Yes: WNL Breast(s): Yes: WNL, Gynecomastia Musculoskeletal: Yes: WNL Extremities: Yes: WNL Edema: No Edema: RUE: Trace, LLE: Trace Peripheral Pulses WNL: Yes Integumentary: Yes: WNL Neurological: Yes: WNL ...Motor Strength: WNL Psychiatric: Yes: WNL Labs: CBC, BMP 11/24/18 06:42 11/24/18 06:42 Discharge Summary Reason For Visit: EXERCISE - INDUCED ANGINA Current Active Problems GERD (gastroesophageal reflux disease) (Acute) Hyperlipidemia (Acute) Hypertension (Acute) Noncompliance with medication regimen (Acute) Unstable angina (Acute) Condition: Stable - Instructions Diet, Activity, Other Instructions: take bp meds ay home as is take prolosec bid appt w me 1200 noon tomorrow balwinder mccarthy abd prior to d/c today stress echo nl Disposition: HOME - Home Medications Comprehensive Discharge Medication List: Ambulatory Orders Amlodipine Besylate 10 mg PO DAILY 12/09/17 Metoprolol Succinate 50 mg PO DAILY 12/09/17
[2018-11-24 18:16] VITALS: BP 160/87; PULSE 90; TEMP 99.1
== END 2018-11-24 19:08 | disposition home or self-care (01) | DRG 198 ==
LOC: JER 21:16 → SUPCPDRO 21:16 → JERBED 23:21 → J4S 11-23 22:29
PROVIDERS: ADMIT Family Medicine; ATTEND Family Medicine
DX: I20.0 Unstable angina (principal); R07.89 Other chest pain; I10 Essential (primary) hypertension; E11.9 Type 2 diabetes mellitus without complications; E78.5 Hyperlipidemia, unspecified; K21.9 Gastro-esophageal reflux disease without esophagitis; R94.6 Abnormal results of thyroid function studies; E66.9 Obesity, unspecified; Z68.32 Body mass index [BMI] 32.0-32.9, adult; Z91.14 Patient's other noncompliance with medication regimen; Z82.49 Family history of ischemic heart disease and other diseases of the circulatory system
CPT/HCPCS: 36415; 71045-TC-FY; 76700-TC; 80048; 80053; 80061; 80307; 82550; 83036; 83721; 83735; 84100; 84439; 84443; 84484; 85025; 85610; 85730; 93005; 93010; 93351; 99285-25; J1644

== ENCOUNTER 2020-10-09 11:47 | Inpatient (IN) | payer OTHER ==
[2020-10-09 12:10] VITALS: BMI 33.6
[2020-10-09] MEDS ORDERED: SODIUM CHLORIDE 0.9% 500 ML INFUS.BAG IV ONE (13:10)
[2020-10-09 14:13] LABS: HEMATOCRIT 37.3 % (32.4-45.2); HEMOGLOBIN 12.2 GM/dL (10.7-15.3); MCH 24.1 pg (25.7-33.7); MCHC 32.7 g/dl (32.0-36.0); MEAN CELL VOLUME 73.5 fl (80-96); MEAN PLT VOLUME 7.2 fl (7.5-11.1); PLATELET COUNT 312 10^3/uL (134-434); RBC 5.07 M/mm3 (3.60-5.2); WHITE BLOOD COUNT 9.5 K/mm3 (4.0-10.0)
[2020-10-09 14:21] LABS: INR 1.05 (0.83-1.09); PROTHROMBIN TIME (PATIENT) 12.9 SEC (9.7-13.0)
[2020-10-09 14:23] LABS: ACTIVATED PTT 26.4 SECONDS (25.2-36.5)
[2020-10-09] MEDS: SODIUM CHLORIDE 1,000 ML IV SCH (14:36)
[2020-10-09 14:39] LABS: CALCIUM 8.8 mg/dL (8.5-10.1)
[2020-10-09 14:40] LABS: ALBUMIN 3.5 g/dl (3.4-5.0)
[2020-10-09 14:45] LABS: BILIRUBIN,TOTAL 0.2 mg/dL (0.2-1); CREATININE 0.8 mg/dL (0.55-1.3); PHOSPHOROUS 2.6 mg/dL (2.5-4.9); TOT PROT 7.4 g/dl (6.4-8.2)
[2020-10-09] MEDS ORDERED: ASPIRIN 81 MG CHEWABLE TABLETS ONE (19:16)
[2020-10-09] MEDS: ASPIRIN 81 MG CHEWABLE TABLETS PO SCH (19:18)
[2020-10-09] MEDS ORDERED: ATORVASTATIN CA 80 MG TABLET (FP) ONE (20:35)
[2020-10-09] MEDS: ATORVASTATIN CA 80 MG TABLET (FP) PO SCH (22:08)
[2020-10-09] MEDS ORDERED: ACETAMINOPHEN 325 MG TABLET (FP) ONE (22:19)
[2020-10-09] MEDS: ACETAMINOPHEN 325 MG TABLET (FP) PO PRN (22:23)
[2020-10-10 06:47] LABS: BASO % 0.6 % (0-2.0); EOS % 2.5 % (0-4.5); HEMATOCRIT 34.5 % (32.4-45.2); HEMOGLOBIN 11.4 GM/dL (10.7-15.3); LYMPH % 19.9 % (8-40); MCH 24.1 pg (25.7-33.7); MEAN PLT VOLUME 7.2 fl (7.5-11.1); MONO % 7.1 % (3.8-10.2); NEUT % 69.9 % (42.8-82.8); PLATELET COUNT 293 10^3/uL (134-434); RBC 4.72 M/mm3 (3.60-5.2); RDW 16.8 % (11.6-15.6); WHITE BLOOD COUNT 7.5 K/mm3 (4.0-10.0)
[2020-10-10 07:13] LABS: ALBUMIN 3.1 g/dl (3.4-5.0); BLOOD UREA NITROGEN 9.6 mg/dL (7-18); CALCIUM 8.1 mg/dL (8.5-10.1); CREATININE 0.8 mg/dL (0.55-1.3)
[2020-10-10 07:14] LABS: BILIRUBIN,TOTAL 0.3 mg/dL (0.2-1); TOT PROT 6.4 g/dl (6.4-8.2)
[2020-10-10] MEDS ORDERED: ASPIRIN 81 MG CHEWABLE TABLETS ONE (14:35)
[2020-10-10] MEDS ORDERED: ACETAMINOPHEN 325 MG TABLET (FP) ONE ×2 (14:35→21:24)
[2020-10-10] MEDS ORDERED: LEVOTHYROXINE NA 25 MCG TABLET (FP) ONE (14:35)
[2020-10-10] MEDS: LEVOTHYROXINE NA 25 MCG TABLET (FP) PO SCH (14:36)
[2020-10-10] MEDS: ASPIRIN 81 MG CHEWABLE TABLETS PO SCH (14:36)
[2020-10-10] MEDS: SODIUM CHLORIDE 1,000 ML IV SCH (14:36)
[2020-10-10] MEDS: ACETAMINOPHEN 325 MG TABLET (FP) PO PRN (21:30)
[2020-10-10] MEDS ORDERED: ATORVASTATIN CA 80 MG TABLET (FP) ONE (21:52)
[2020-10-10] MEDS: ATORVASTATIN CA 80 MG TABLET (FP) PO SCH (22:00)
[2020-10-11] MEDS: ASPIRIN 81 MG CHEWABLE TABLETS PO SCH (10:00)
[2020-10-11] MEDS ORDERED: amLODIPine BESYLATE 5 MG TABLET (FP) ONE (14:32)
[2020-10-11] MEDS ORDERED: amLODIPine BESYLATE 10 MG TABLET (FP) PO SCH (14:45)
[2020-10-11] MEDS ORDERED: amLODIPine BESYLATE 5 MG TABLET (FP) PO SCH (14:45)
[2020-10-11] MEDS ORDERED: CARVEDILOL 12.5 MG TABLET (FP) ONE (15:31)
[2020-10-11 16:06] VITALS: TEMP 98.7
[2020-10-11] MEDS ORDERED: LISINOPRIL 10 MG TABLET PO ONE (16:28)
[2020-10-11] MEDS: SODIUM CHLORIDE 1,000 ML IV SCH (16:39)
[2020-10-11] MEDS: LEVOTHYROXINE NA 25 MCG TABLET (FP) PO SCH (16:39)
[2020-10-11] MEDS ORDERED: LISINOPRIL 5 MG TABLET ONE (16:43)
[2020-10-11] MEDS ORDERED: ACETAMINOPHEN 325 MG TABLET (FP) ONE (16:47)
[2020-10-11 18:13] VITALS: BP 159/88; PULSE 70
[2020-10-11] MEDS ORDERED: CARVEDILOL 6.25 MG TABLET (FP) PO SCH (22:00)
[2020-10-12] MEDS ORDERED: amLODIPine BESYLATE 5 MG TABLET (FP) PO SCH (05:15)
== END 2020-10-11 18:13 | disposition home or self-care (01) | DRG 66 ==
LOC: JER 11:47 → JERBED 15:00
DX: I63.89 Other cerebral infarction (principal); R29.702 NIHSS score 2; I10 Essential (primary) hypertension; E78.5 Hyperlipidemia, unspecified; E03.9 Hypothyroidism, unspecified; E66.9 Obesity, unspecified; Z68.33 Body mass index [BMI] 33.0-33.9, adult; R47.1 Dysarthria and anarthria; K22.70 Barrett's esophagus without dysplasia
CPT/HCPCS: 36415; 70450-TC; 70551-TC; 80053; 80061; 82962; 83036; 83735; 84100; 84443; 85025; 85027; 85610; 85730; 93005; 93010; 93306-TC; 93880-TC; 99285-25; C9803; U0003; U0005

== ENCOUNTER 2021-09-26 13:33 | Emergency (ER) | payer OTHER ==
[2021-09-26] MEDS ORDERED: ACETAMINOPHEN 1000 MG/100 ML BAG IVPB ONE (14:04)
[2021-09-26] MEDS ORDERED: FAMOTIDINE 20 MG/50 ML IVPB 20 MG/50 ML MG IVPB ONE (14:04)
[2021-09-26] MEDS ORDERED: SODIUM CHLORIDE 0.9% 500 ML INFUS.BAG IV ONE (14:04)
[2021-09-26] MEDS ORDERED: FAMOTIDINE 10 MG/ML VIAL IVPB ONE (14:29)
[2021-09-26] MEDS ORDERED: ACETAMINOPHEN INJECTION 100 ML IVPB ONE (14:29)
[2021-09-26 14:57] LABS: BASO % 0.7 % (0-2.0); EOS % 1.5 % (0-4.5); HEMATOCRIT 28.8 % (32.4-45.2); LYMPH % 14.9 % (8-40); MCH 19.9 pg (25.7-33.7); MCHC 31.1 g/dl (32.0-36.0); MEAN CELL VOLUME 64.1 fl (80-96); MEAN PLT VOLUME 6.7 fl (7.5-11.1); MONO % 6.5 % (3.8-10.2); NEUT % 76.4 % (42.8-82.8); PLATELET COUNT 318 10^3/uL (134-434); RBC 4.49 M/mm3 (3.60-5.2); RDW 19.1 % (11.6-15.6); WHITE BLOOD COUNT 10.4 K/mm3 (4.0-10.0)
[2021-09-26 14:58] VITALS: TEMP 98.1; BMI 33.3
[2021-09-26 15:21] LABS: CALCIUM 8.7 mg/dL (8.5-10.1)
[2021-09-26 15:22] LABS: ALBUMIN 3.1 g/dl (3.4-5.0); BLOOD UREA NITROGEN 12.7 mg/dL (7-18)
[2021-09-26 15:25] LABS: CREATININE 0.6 mg/dL (0.55-1.3)
[2021-09-26 15:26] LABS: BILIRUBIN,TOTAL 0.2 mg/dL (0.2-1); TOT PROT 6.6 g/dl (6.4-8.2)
[2021-09-26 15:27] LABS: ANISOCYTOSIS 2+; MACROCYTOSIS 0; OVALOCYTE 1+
[2021-09-26 15:30] LABS: N-TERMINAL BNP 43.2 pg/ml (5-125)
[2021-09-26 18:00] VITALS: BP 132/73; PULSE 78; RESP 20
== END 2021-09-26 18:07 | disposition home or self-care (01) ==
LOC: JER 13:33
PROC: 3E033GC Introduction of Other Therapeutic Substance into Peripheral Vein, Percutaneous Approach (ICD-10-PCS; principal; 2021-09-26)
DX: R53.1 Weakness (principal)
CPT/HCPCS: 0241U-QW; 36415; 71045-TC-FY; 80053; 83735; 83880; 84484; 85025; 93005; 93010; 99285-25

== ENCOUNTER 2022-02-06 17:24 | Observation (INO) | payer OTHER ==
[2022-02-06 17:37] VITALS: BMI 34.9
[2022-02-06] MEDS ORDERED: NITROGLYCERIN SUBLINGUAL 1/150 0.4 MG TAB SL ONE (18:28)
[2022-02-06 19:05] LABS: INR 0.99 (0.83-1.09); PROTHROMBIN TIME (PATIENT) 11.4 SEC (9.7-13.0)
[2022-02-06 19:08] LABS: ACTIVATED PTT 25.3 SECONDS (25.2-36.5)
[2022-02-06 19:15] LABS: CHLORIDE 104 mmol/L (98-107); SODIUM 139 mmol/L (136-145)
[2022-02-06 19:17] LABS: CALCIUM 9.6 mg/dL (8.5-10.1)
[2022-02-06 19:18] LABS: ALBUMIN 3.6 g/dl (3.4-5.0); ANION GAP 10 MMOL/L (8-16); BLOOD UREA NITROGEN 14.8 mg/dL (7-18); CO2 25 mmol/L (21-32); GLUCOSE,RANDOM 267 mg/dL (74-106)
[2022-02-06 19:21] LABS: SGOT/AST 23 U/L (15-37); SGPT/ALT 50 U/L (13-61)
[2022-02-06 19:23] LABS: BASO % 0.5 % (0-2.0); EOS % 0.7 % (0-4.5); HEMATOCRIT 35.1 % (32.4-45.2); HEMOGLOBIN 10.7 GM/dL (10.7-15.3); LYMPH % 11.4 % (8-40); MCH 20.4 pg (25.7-33.7); MCHC 30.5 g/dl (32.0-36.0); MEAN CELL VOLUME 66.9 fl (80-96); MEAN PLT VOLUME 7.5 fl (7.5-11.1); MONO % 5.5 % (3.8-10.2); NEUT % 81.9 % (42.8-82.8); PLATELET COUNT 379 10^3/uL (134-434); RBC 5.24 M/mm3 (3.60-5.2); RDW 20.1 % (11.6-15.6); WHITE BLOOD COUNT 12.4 K/mm3 (4.0-10.0)
[2022-02-06 19:23] LABS: BILIRUBIN,TOTAL 0.2 mg/dL (0.2-1); TOT PROT 7.7 g/dl (6.4-8.2)
[2022-02-06 19:24] LABS: ALK PHOS 119 U/L (45-117)
[2022-02-06 20:16] LABS: ANISOCYTOSIS 2+; MACROCYTOSIS 0; OVALOCYTE 1+; PLATELET ESTIMATE NORMAL
[2022-02-06] MEDS ORDERED: HEPARIN NA (PORCINE) 5,000 UNITS/ML 1ML VIAL IVPUSH PRN (22:41)
[2022-02-06] MEDS ORDERED: ASPIRIN 81 MG CHEWABLE TABLETS PO ONE (22:42)
[2022-02-06] MEDS ORDERED: NITROGLYCERIN SUBLINGUAL 1/150 0.4 MG TAB SL PRN (23:23)
[2022-02-06] MEDS ORDERED: SODIUM CHLORIDE 1,000 ML IV SCH (23:30)
[2022-02-06] MEDS ORDERED: ASPIRIN 81 MG CHEWABLE TABLETS ONE (23:35)
[2022-02-07 09:40] LABS: BASO % 0.4 % (0-2.0); EOS % 1.5 % (0-4.5); HEMATOCRIT 32.6 % (32.4-45.2); HEMOGLOBIN 10.2 GM/dL (10.7-15.3); LYMPH % 15.5 % (8-40); MCH 20.8 pg (25.7-33.7); MCHC 31.2 g/dl (32.0-36.0); MEAN CELL VOLUME 66.8 fl (80-96); MEAN PLT VOLUME 7.2 fl (7.5-11.1); MONO % 7.5 % (3.8-10.2); NEUT % 75.1 % (42.8-82.8); PLATELET COUNT 309 10^3/uL (134-434); RBC 4.88 M/mm3 (3.60-5.2); RDW 19.5 % (11.6-15.6)
[2022-02-07] MEDS ORDERED: metoPROLOL SUCCINATE 25 MG TAB.SR.24H (FP) PO SCH (10:00)
[2022-02-07] MEDS ORDERED: metoPROLOL SUCCINATE 25 MG TAB.SR.24H (FP) PO ONE (10:14)
[2022-02-07] MEDS ORDERED: PANTOPRAZOLE SODIUM 40 MG VIAL ONE (10:15)
[2022-02-07] MEDS: PANTOPRAZOLE SODIUM 40 MG VIAL IVPUSH SCH (10:23)
[2022-02-07 10:38] LABS: ALBUMIN 3.1 g/dl (3.4-5.0)
[2022-02-07 10:40] LABS: BLOOD UREA NITROGEN 9.9 mg/dL (7-18); CALCIUM 8.8 mg/dL (8.5-10.1)
[2022-02-07 10:43] LABS: CREATININE 0.6 mg/dL (0.55-1.3)
[2022-02-07 10:44] LABS: BILIRUBIN,TOTAL 0.3 mg/dL (0.2-1); TOT PROT 6.7 g/dl (6.4-8.2)
[2022-02-07] MEDS ORDERED: ATORVASTATIN CA 80 MG TABLET (FP) ONE (21:37)
[2022-02-07] MEDS ORDERED: ASPIRIN 81 MG CHEWABLE TABLETS ONE (21:37)
[2022-02-07] MEDS ORDERED: CLOPIDOGREL BISULFATE 75 MG TABLET (FP) ONE (21:37)
[2022-02-07] MEDS ORDERED: CARVEDILOL 6.25 MG TABLET (FP) ONE (21:37)
[2022-02-07] MEDS: ASPIRIN 81 MG CHEWABLE TABLETS PO SCH (21:45)
[2022-02-07] MEDS: CLOPIDOGREL BISULFATE 75 MG TABLET (FP) PO SCH (21:45)
[2022-02-07] MEDS: CARVEDILOL 6.25 MG TABLET (FP) PO SCH (21:45)
[2022-02-07] MEDS ORDERED: ATORVASTATIN CA 80 MG TABLET (FP) PO SCH (22:00)
[2022-02-08] MEDS ORDERED: LEVOTHYROXINE NA 25 MCG TABLET (FP) PO SCH (07:00)
[2022-02-08 08:07] LABS: BASO % 0.6 % (0-2.0); EOS % 2.1 % (0-4.5); HEMATOCRIT 31.5 % (32.4-45.2); HEMOGLOBIN 9.7 GM/dL (10.7-15.3); LYMPH % 22.5 % (8-40); MCH 20.5 pg (25.7-33.7); MCHC 30.7 g/dl (32.0-36.0); MEAN CELL VOLUME 66.8 fl (80-96); MONO % 7.2 % (3.8-10.2); NEUT % 67.6 % (42.8-82.8); PLATELET COUNT 292 10^3/uL (134-434); RBC 4.72 M/mm3 (3.60-5.2); RDW 19.4 % (11.6-15.6); WHITE BLOOD COUNT 7.9 K/mm3 (4.0-10.0)
[2022-02-08 08:37] LABS: CALCIUM 8.2 mg/dL (8.5-10.1)
[2022-02-08 08:39] LABS: BLOOD UREA NITROGEN 15.9 mg/dL (7-18)
[2022-02-08 08:41] LABS: CREATININE 0.8 mg/dL (0.55-1.3)
[2022-02-08 08:41] LABS: CHOLESTEROL 249 mg/dL (50-200); TRIGLYCERIDES 135 mg/dL (0-150)
[2022-02-08 08:43] LABS: LDL CHOLESTEROL (ONLY SJRH) 196 mg/dL (5-100)
[2022-02-08 08:45] LABS: HDL CHOLESTEROL 41 mg/dL (40-60)
[2022-02-08] MEDS ORDERED: PANTOPRAZOLE 40 MG TABLET PO ONE (10:05)
[2022-02-08] MEDS ORDERED: CLOPIDOGREL BISULFATE 75 MG TABLET (FP) ONE (10:05)
[2022-02-08] MEDS ORDERED: LEVOTHYROXINE NA 25 MCG TABLET (FP) ONE (10:06)
[2022-02-08] MEDS ORDERED: CARVEDILOL 6.25 MG TABLET (FP) ONE (10:06)
[2022-02-08] MEDS ORDERED: ASPIRIN 81 MG CHEWABLE TABLETS ONE (10:06)
[2022-02-08] MEDS: ASPIRIN 81 MG CHEWABLE TABLETS PO SCH (10:11)
[2022-02-08] MEDS: CLOPIDOGREL BISULFATE 75 MG TABLET (FP) PO SCH (10:11)
[2022-02-08] MEDS: CARVEDILOL 6.25 MG TABLET (FP) PO SCH (10:11)
[2022-02-08] MEDS: PANTOPRAZOLE SODIUM 40 MG VIAL IVPUSH SCH (10:11)
[2022-02-08 12:00] VITALS: BP 163/91; PULSE 74; RESP 16; TEMP 97.9
== END 2022-02-08 11:55 | disposition short-term general hospital (02) ==
LOC: JER 17:24 → JERBED 22:52 → INTOOBSV 22:52
PROVIDERS: ADMIT Family Medicine; ATTEND Family Medicine
PROC: 3E033GC Introduction of Other Therapeutic Substance into Peripheral Vein, Percutaneous Approach (ICD-10-PCS; principal; 2022-02-06)
PROC: 3E0337Z Introduction of Electrolytic and Water Balance Substance into Peripheral Vein, Percutaneous Approach (ICD-10-PCS; 2022-02-06)
DX: I21.4 Non-ST elevation (NSTEMI) myocardial infarction (principal); K21.9 Gastro-esophageal reflux disease without esophagitis; I69.354 Hemiplegia and hemiparesis following cerebral infarction affecting left non-dominant side; R73.03 Prediabetes; E66.8 Other obesity; Z68.34 Body mass index [BMI] 34.0-34.9, adult; I10 Essential (primary) hypertension; E78.5 Hyperlipidemia, unspecified; R77.8 Other specified abnormalities of plasma proteins; I20.0 Unstable angina; R53.83 Other fatigue
CPT/HCPCS: 36415; 71045-TC-FY; 71275-TC; 74174-TC; 80048; 80053; 80061; 83036; 84443; 84484; 85025; 85610; 85730; 86850; 86900; 86901; 93005; 93010; 93306-TC; 96365; 99285-25; C9803-CS; G0378; U0003; U0005

== ENCOUNTER 2023-05-23 13:17 | Emergency (ER) | payer OTHER ==
[2023-05-23 13:31] VITALS: TEMP 98; BMI 31.2
[2023-05-23 15:49] LABS: BASO % 0.5 % (0-2.0); EOS % 2.8 % (0-4.5); HEMOGLOBIN 9.4 GM/dL (10.7-15.3); LYMPH % 18.4 % (8-40); MCHC 31.2 g/dl (32.0-36.0); MEAN CELL VOLUME 63.8 fl (80-96); MEAN PLT VOLUME 7.1 fl (7.5-11.1); MONO % 8.1 % (3.8-10.2); NEUT % 70.2 % (42.8-82.8); PLATELET COUNT 323 10^3/uL (134-434); RBC 4.71 M/mm3 (3.60-5.2); RDW 18.5 % (11.6-15.6); WHITE BLOOD COUNT 9.9 K/mm3 (4.0-10.0)
[2023-05-23 15:54] LABS: MCH 19.9 pg (25.7-33.7)
[2023-05-23 16:03] LABS: POTASSIUM 4.2 mmol/L (3.5-5.1)
[2023-05-23 16:06] LABS: CALCIUM 9.1 mg/dL (8.5-10.1)
[2023-05-23 16:07] LABS: ALBUMIN 3.4 g/dl (3.4-5.0); BLOOD UREA NITROGEN 13.3 mg/dL (7-18)
[2023-05-23 16:10] LABS: CREATININE 0.7 mg/dL (0.55-1.3)
[2023-05-23 16:11] LABS: BILIRUBIN,TOTAL 0.3 mg/dL (0.2-1); TOT PROT 7.1 g/dl (6.4-8.2)
[2023-05-23 16:29] LABS: ANISOCYTOSIS 2+; MACROCYTOSIS 0; OVALOCYTE 1+; TEAR DROP CELLS 1+
[2023-05-23 18:37] VITALS: BP 122/64; PULSE 67; RESP 18
[2023-05-23 19:02] LABS: EPI CELLS 16 /uL (0-25.1); HYALINE CASTS 0 /uL (0-3.1); PH,URINE 7.5 (5.0-8.0); URINE APPEARANCE CLEAR; URINE BACTERIA 79 /uL (0-1359); URINE BILIRUBIN NEGATIVE (NEGATIVE); URINE COLOR YELLOW; URINE GLUCOSE (UA) NEGATIVE (NEGATIVE); URINE KETONE NEGATIVE (NEGATIVE); URINE LEUK ESTERASE 1+ (NEGATIVE); URINE NITRITE NEGATIVE (NEGATIVE); URINE PROTEIN NEGATIVE (NEGATIVE); URINE RBC 5 /uL (0-23.9); URINE UROBILINOGEN 0.2 mg/dL (0.2-1.0); URINE WBC 86 /uL (0-25.8)
== END 2023-05-23 19:48 | disposition home or self-care (01) ==
LOC: JER 13:17
DX: R11.0 Nausea (principal); R10.9 Unspecified abdominal pain; M79.602 Pain in left arm; Z20.822 Contact with and (suspected) exposure to COVID-19
CPT/HCPCS: 0241U-QW; 36415; 70450-TC; 71045-TC-FY; 72125-TC; 74177-TC; 80053; 81003; 83690; 84484; 85025; 87086; 93005; 93010; 99285-25; Q9967

== ENCOUNTER 2024-01-15 15:39 | Inpatient (IN) | payer OTHER ==
[2024-01-15 15:52] VITALS: BMI 30.7
[2024-01-15 16:56] LABS: BASO % 0.6 % (0-2.0); EOS % 1.4 % (0-4.5); HEMATOCRIT 28.7 % (32.4-45.2); HEMOGLOBIN 8.8 GM/dL (10.7-15.3); LYMPH % 14.2 % (8-40); MCHC 30.6 g/dl (32.0-36.0); MEAN CELL VOLUME 61.7 fl (80-96); NEUT % 76.8 % (42.8-82.8); PLATELET COUNT 287 10^3/uL (134-434); RBC 4.65 M/mm3 (3.60-5.2); RDW 18.8 % (11.6-15.6); WHITE BLOOD COUNT 10.7 K/mm3 (4.0-10.0)
[2024-01-15 17:01] LABS: MCH 18.9 pg (25.7-33.7)
[2024-01-15 17:04] LABS: INR 1.06 (0.83-1.09); PROTHROMBIN TIME (PATIENT) 12.2 SEC (9.7-13.0)
[2024-01-15 17:07] LABS: ACTIVATED PTT 27.8 SECONDS (25.2-36.5)
[2024-01-15 17:13] LABS: POTASSIUM 3.9 mmol/L (3.5-5.1)
[2024-01-15 17:15] LABS: ALBUMIN 3.3 g/dl (3.4-5.0); BLOOD UREA NITROGEN 16.3 mg/dL (7-18)
[2024-01-15 17:19] LABS: CREATININE 0.8 mg/dL (0.55-1.3)
[2024-01-15 17:20] LABS: BILIRUBIN,TOTAL 0.3 mg/dL (0.2-1); TOT PROT 6.8 g/dl (6.4-8.2)
[2024-01-15] MEDS ORDERED: ASPIRIN 81 MG CHEWABLE TABLETS ONE (17:33)
[2024-01-15] MEDS: ASPIRIN 81 MG CHEWABLE TABLETS PO ONE (17:48)
[2024-01-15 18:10] LABS: HIV INTERPRETATION NEGATIVE (NEGATIVE)
[2024-01-15 18:43] LABS: ANISOCYTOSIS 2+; MACROCYTOSIS 0; ROULEAU 1+
[2024-01-15] MEDS: CARVEDILOL 12.5 MG TABLET (FP) PO SCH (21:25)
[2024-01-15] MEDS: ATORVASTATIN CA 80 MG TABLET (FP) PO SCH (21:27)
[2024-01-15] MEDS: PRAMIPEXOLE DIHYDROCHLORIDE 0.125 MG TABLET PO SCH (23:49)
[2024-01-16] MEDS: LEVOTHYROXINE NA 50 MCG TABLET (FP) PO SCH (06:59)
[2024-01-16 07:00] LABS: BASO % 0.6 % (0-2.0); EOS % 1.7 % (0-4.5); HEMATOCRIT 28.1 % (32.4-45.2); HEMOGLOBIN 8.5 GM/dL (10.7-15.3); LYMPH % 20.5 % (8-40); MCHC 30.1 g/dl (32.0-36.0); MEAN CELL VOLUME 62.1 fl (80-96); MONO % 8.3 % (3.8-10.2); NEUT % 68.9 % (42.8-82.8); PLATELET COUNT 263 10^3/uL (134-434); RBC 4.53 M/mm3 (3.60-5.2); RDW 18.8 % (11.6-15.6); WHITE BLOOD COUNT 8.5 K/mm3 (4.0-10.0)
[2024-01-16 07:22] LABS: CALCIUM 8.7 mg/dL (8.5-10.1)
[2024-01-16 07:23] LABS: BLOOD UREA NITROGEN 14.8 mg/dL (7-18); MAGNESIUM 1.6 mg/dL (1.8-2.4)
[2024-01-16 07:25] LABS: MCH 18.7 pg (25.7-33.7)
[2024-01-16 07:26] LABS: CREATININE 0.6 mg/dL (0.55-1.3)
[2024-01-16] MEDS: LOSARTAN POTASSIUM 25 MG TABLET PO SCH (11:19)
[2024-01-16] MEDS: ASPIRIN 81 MG CHEWABLE TABLETS PO SCH (11:19)
[2024-01-16] MEDS: amLODIPine BESYLATE 5 MG TABLET (FP) PO SCH (11:20)
[2024-01-16] MEDS: FERROUS SO4 325 MG TABLET (FP) PO SCH (11:20)
[2024-01-16] MEDS: ENOXAPARIN NA (PORCINE) 40 MG/0.4 ML DISP.SYRIN SQ SCH (11:20)
[2024-01-17 09:13] LABS: BASO % 0.7 % (0-2.0); HEMOGLOBIN 8.8 GM/dL (10.7-15.3); LYMPH % 20.1 % (8-40); MCHC 30.2 g/dl (32.0-36.0); MEAN CELL VOLUME 63.2 fl (80-96); MEAN PLT VOLUME 8.2 fl (7.5-11.1); MONO % 7.5 % (3.8-10.2); NEUT % 69.7 % (42.8-82.8); PLATELET COUNT 272 10^3/uL (134-434); RBC 4.59 M/mm3 (3.60-5.2); RDW 19.2 % (11.6-15.6); WHITE BLOOD COUNT 7.8 K/mm3 (4.0-10.0)
[2024-01-17 09:15] LABS: MCH 19.1 pg (25.7-33.7)
[2024-01-17 09:30] LABS: BLOOD UREA NITROGEN 14.8 mg/dL (7-18)
[2024-01-17 09:34] LABS: CREATININE 0.7 mg/dL (0.55-1.3)
[2024-01-17 11:06] LABS: BASO % 0.7 % (0-2.0); EOS % 1.5 % (0-4.5); HEMATOCRIT 29.1 % (32.4-45.2); HEMOGLOBIN 8.9 GM/dL (10.7-15.3); LYMPH % 15.6 % (8-40); MCHC 30.4 g/dl (32.0-36.0); MEAN PLT VOLUME 7.5 fl (7.5-11.1); MONO % 7.4 % (3.8-10.2); NEUT % 74.8 % (42.8-82.8); PLATELET COUNT 297 10^3/uL (134-434); RDW 18.7 % (11.6-15.6); WHITE BLOOD COUNT 8.5 K/mm3 (4.0-10.0)
[2024-01-17 11:08] LABS: MCH 18.9 pg (25.7-33.7)
[2024-01-17 11:41] LABS: CALCIUM 9.4 mg/dL (8.5-10.1)
[2024-01-17 11:42] LABS: BLOOD UREA NITROGEN 13.3 mg/dL (7-18)
[2024-01-17 11:45] LABS: CREATININE 0.7 mg/dL (0.55-1.3)
[2024-01-17 14:28] LABS: PH,URINE 6.5 (5.0-8.0); URINE APPEARANCE CLEAR; URINE BILIRUBIN NEGATIVE (NEGATIVE); URINE COLOR YELLOW; URINE GLUCOSE (UA) NEGATIVE (NEGATIVE); URINE KETONE TRACE (NEGATIVE); URINE LEUK ESTERASE NEGATIVE (NEGATIVE); URINE NITRITE NEGATIVE (NEGATIVE); URINE PROTEIN NEGATIVE (NEGATIVE)
[2024-01-18] MEDS: POLYETHYLENE GLYCOL (HEALTHYLAX) 3350 17 GM PACKET PO SCH (10:43)
[2024-01-18 11:55] LABS: BASO % 0.6 % (0-2.0); EOS % 1.4 % (0-4.5); HEMATOCRIT 28.2 % (32.4-45.2); HEMOGLOBIN 8.6 GM/dL (10.7-15.3); LYMPH % 15.7 % (8-40); MCH 19.1 pg (25.7-33.7); MCHC 30.6 g/dl (32.0-36.0); MEAN CELL VOLUME 62.4 fl (80-96); MEAN PLT VOLUME 7.2 fl (7.5-11.1); MONO % 7.6 % (3.8-10.2); NEUT % 74.7 % (42.8-82.8); PLATELET COUNT 293 10^3/uL (134-434); RBC 4.52 M/mm3 (3.60-5.2); RDW 18.7 % (11.6-15.6); WHITE BLOOD COUNT 9.3 K/mm3 (4.0-10.0)
[2024-01-18 12:18] LABS: BLOOD UREA NITROGEN 15.1 mg/dL (7-18); CALCIUM 9.4 mg/dL (8.5-10.1)
[2024-01-18 12:22] LABS: CREATININE 0.7 mg/dL (0.55-1.3)
[2024-01-19] MEDS: FLU VACCINE (FLULAVAL) PF 45 MCG/0.5 ML SYRINGE 2024-2025 IM ONE (11:16)
[2024-01-19 11:24] VITALS: BP 122/71; PULSE 75; RESP 24; TEMP 98.6
== END 2024-01-19 12:49 | disposition home or self-care (01) | DRG 45 ==
LOC: JER 15:39 → JERBED 17:28 → J4W 20:49
PROVIDERS: ADMIT Family Medicine; ATTEND Family Medicine
DX: I63.9 Cerebral infarction, unspecified (principal); I69.354 Hemiplegia and hemiparesis following cerebral infarction affecting left non-dominant side; I10 Essential (primary) hypertension; E78.5 Hyperlipidemia, unspecified; I25.10 Atherosclerotic heart disease of native coronary artery without angina pectoris; I25.2 Old myocardial infarction; E03.9 Hypothyroidism, unspecified; R91.1 Solitary pulmonary nodule; D64.9 Anemia, unspecified
CPT/HCPCS: 36415; 70450-TC; 70496-TC; 70498-TC; 70551-TC; 71045-TC-FY; 71250-TC; 80048; 80053; 81003; 82550; 82728; 82962; 83036; 83540; 83550; 83735; 84443; 84484; 85025; 85610; 85730; 86803; 86850; 86900; 86901; 87389; 90656; 93005; 93010; 93306-TC; 97116-GP; 97161-GP; 99285-25; G0008